=== PATIENT | female | born 1940 | race Caucasian/White ===

== ENCOUNTER 2016-06-08 10:57 | Day surgery (SDC) | payer MEDICARE, OTHER ==
[~2016-06-08] VITALS: Ht 162.6 cm; Wt 76.3 kg
[~2016-06-08 10:57] MED LIST: AMLO5TAB2 PO; ANAS1 PO; ATOR1TAB18 PO; CARV25TA PO; FENO54TA PO; FERR65TA PO; LACTATED RINGER'S 1000 ML INJ 1,000 ML IV ONE; METF500T PO; METO25TA3 PO; PROPOFOL 200 MG/20 ML AMP IV ONE; VITA10002 PO; VITA200012 PO
[2016-06-08 12:32] VITALS: BP 174/81; PULSE 64; RESP 18; TEMP 97.5; O2SAT 97
[2016-06-08 12:50] LABS: APTT (PATIENT) 26.1 SEC (24.3-30.1); PROTHROMBIN TIME - PATIENT 11.4 SEC (9.8-11.6)
--- NOTE | 2016-06-08 14:41 | EKG ---
Date Performed: 06/08/2016 Time Performed: 12:31:37 PTAGE: 76 years EKG: Sinus rhythm VOLTAGE CRITERIA FOR LVH ABNORMAL ECG NO PREVIOUS TRACING DOCTOR: Flako Lang Interpretating Date/Time 06/08/2016 14:38:38
[2016-06-08] MEDS ORDERED: LIDOCAINE 1%/EPINEPHrine 1:100,000 SOLN 20 ML VIAL ONE (15:14)
[2016-06-08] MEDS ORDERED: DICLOFENAC SODIUM 37.5 MG/ML VIAL IV PUSH ONE (15:19)
[2016-06-08] MEDS ORDERED: MIDAZOLAM HCL 2 MG/2 ML VIAL ONE (15:19)
[2016-06-08] MEDS ORDERED: FAMOTIDINE 20 MG/2 ML VIAL ONE (15:20)
[2016-06-08] MEDS ORDERED: ceFAZolin INJ 1,000 MG VIAL IV ONE (15:39)
[2016-06-08 16:49] VITALS: TEMP 96.6
[2016-06-08] MEDS ORDERED: *morphine SULFATE 8 MG/ML PERIprocedure ONLY ONE (16:58)
[2016-06-08] MEDS ORDERED: LABETALOL HCL 100 MG/20 ML VIAL ONE (16:58)
[2016-06-08] MEDS ORDERED: *ENALAPRILAT 1.25 MG/ML VIAL PERIprocedural Use ONLY ONE (17:05)
[2016-06-08] MEDS ORDERED: *RESP: ALBUTEROL 2.5 MG/3 ML NEB (PRN) PERIprocedural Use ONLY NEB ONE (17:08)
[2016-06-08] MEDS ORDERED: KETOROLAC TROMETHAMINE 30 MG/ML (IVP) VIAL IV PUSH SCH (17:13)
[2016-06-08] MEDS ORDERED: KETOROLAC TROMETHAMINE 30 MG/ML (IVP) VIAL ONE (17:13)
[2016-06-08] MEDS ORDERED: NITROGLYCERIN 0.4 MG SL 25 TABS/BTL SL ONE (17:25)
[2016-06-08] MEDS ORDERED: DO NOT ADM ANY ANTICOAGULANT DRUGS XX PRN (17:30)
[2016-06-08] MEDS ORDERED: FUROSEMIDE 20 MG/2 ML VIAL ONE (17:46)
[2016-06-08] MEDS ORDERED: *MEPERIDINE 25 MG INJ VIAL PERIprocedural Use ONLY ONE (18:00)
[2016-06-08] MEDS ORDERED: *ONDANSETRON 4 MG VIAL PERIprocedural Use ONLY ONE (18:05)
[2016-06-08 18:45] VITALS: BP 108/63; PULSE 67; RESP 15; O2SAT 95
--- NOTE | 2016-06-09 20:09 | EKG ---
Date Performed: 06/08/2016 Time Performed: 17:50:31 PTAGE: 76 years EKG: Sinus rhythm MODERATE VOLTAGE CRITERIA FOR LVH, CONSIDER NORMAL VARIANT NONSPECIFIC T-WAVE ABNORMALITY BORDERLINE ECG PREVIOUS TRACING : 06/08/2016 12.31 DOCTOR: Susu Orellana Interpretating Date/Time 06/09/2016 20:08:30
--- NOTE | 2016-06-10 14:23 | MP ---
cc: SHIELA BOOGIE KELLY L. MD DATE OF SURGERY 06/08/2016 PREOPERATIVE DIAGNOSIS High-grade vaginal dysplasia POSTOPERATIVE DIAGNOSIS High-grade vaginal dysplasia PROCEDURE Examination under anesthesia, colposcopy, wide local excision of vaginal mucosa. SURGEON Mallorie Schwartz MD MANIFOLD OPERATOR Evangeline regional administrative assistant ANESTHESIA General endotracheal anesthesia ESTIMATED BLOOD LOSS 20 cc HISTORY This is a 76-year-old female status post hysterectomy a number of years ago has had periodic dysplasia of the vagina undergoing surveillance recently. Abnormal Pap smear lead to colposcopy and biopsy of an area in the right vagina that appeared dysplastic. Results came back as high-grade dysplasia. She was counseled regarding options and given the recurrent and seemingly focal area of this lesion, recommendation was for surgical excision of that vaginal mucosa. She is in favor and presents now. She was seen in the preop holding area where this was again reviewed. Questions were answered, she expressed a good understanding and agreed to move forward. FINDINGS On exam under anesthesia, there is no inguinal adenopathy. External genitalia without mass or lesion. There was no overt vaginal lesion. There was diffuse atrophic changes. The cervix and uterus are surgically absent. After application of dilute acetic acid, approximately 1.5 to 2 cm area of acetowhite epithelium with some erythematous changes is noted in the right upper vagina on the mid and posterior aspect of the vaginal cuff suture line. There are diffuse atrophic changes. No other neoplastic change. At the completion of the case, the entire area of abnormality with a margin of normal-appearing skin had been removed. Neither the peritoneal cavity, bladder or rectum were entered. There was good reapproximation and complete hemostasis. PROCEDURE The patient taken to the operating room placed in the dorsal lithotomy position after general endotracheal anesthesia was administered. Time-out was undertaken and the patient was identified by sight recognition and hospital ID bracelet and the proposed procedure was reviewed and confirmed. Exam under anesthesia was performed with findings as described above. Dilute acetic acid was applied. Colposcopy was performed with findings as described above. Surgical marker was used to outline an ellipse circumferentially around the lesion with a margin of normal skin. Lidocaine epinephrine was injected submucosally and then a scalpel dissection was used to outline the area of dissection with countertraction with forceps. The mucosa was sharply dissected off from the underlying submucosal tissue. The specimen was removed and labeled as right upper vagina mucosa and then the mucosa was reapproximated and reinforced with interrupted [id number] 3-0 Vicryl sutures starting at the corners and then completing the closure with good hemostasis, good approximation of tissue. Exam confirmed the suture line was intact. There were no remaining foreign objects in the vagina. Pelvic exam included rectal exam confirmed there was no disruption to the anal or rectal mucosa and the surgical site was dry. There was no close proximity or suggestion of entry into the bladder. Similarly, the peritoneal cavity was not entered. A change of sterile gloves had been undertaken for final exam. There were no remaining foreign objects in the vagina. Preliminary and final counts were correct. She was returned to dorsal supine position and was pending reversal of anesthesia when I left the operating room to precede her to the Post Anesthesia Care Unit. MD DAVID Resendez/KIERSTEN /4:42 PM /2:16 PM
== END 2016-06-08 19:00 | disposition home or self-care (01) ==
LOC: HSDC 10:57
PROVIDERS: ATTEND Obstetrics & Gynecology Gynecologic Oncology
DX: D07.2 Carcinoma in situ of vagina (principal); Z88.1 Allergy status to other antibiotic agents; I11.0 Hypertensive heart disease with heart failure; I25.10 Atherosclerotic heart disease of native coronary artery without angina pectoris; E78.5 Hyperlipidemia, unspecified; Z87.891 Personal history of nicotine dependence; J44.9 Chronic obstructive pulmonary disease, unspecified; K21.9 Gastro-esophageal reflux disease without esophagitis; D64.9 Anemia, unspecified; Z85.3 Personal history of malignant neoplasm of breast; Z90.12 Acquired absence of left breast and nipple; E11.9 Type 2 diabetes mellitus without complications; Z79.84 Long term (current) use of oral hypoglycemic drugs
CPT/HCPCS: 00906; 56620; 85610; 85730; 86850; 86900; 86901; 88305; 93005; 94664; J0690; J1130; J1885; J1940; J2175; J2250; J2270; J2405; J3010; J7120; J7613; 88302

== ENCOUNTER → 2017-08-11 | Outpatient (CLI) | DX: Z01.812 Encounter for preprocedural laboratory examination (principal); Z01.810 Encounter for preprocedural cardiovascular examination; Z01.811 Encounter for preprocedural respiratory examination; C52 Malignant neoplasm of vagina; R94.31 Abnormal electrocardiogram [ECG] [EKG] ==

== ENCOUNTER → 2017-08-30 | Day surgery (SDC) | payer MEDICARE, OTHER ==
[~2017-08-30] VITALS: Ht 162.6 cm; Wt 77.4 kg
[~2017-08-30] MED LIST changes: +*ENALAPRILAT 1.25 MG/ML VIAL PERIprocedural Use ONLY ONE; +*RESP: ALBUTEROL 2.5 MG/3 ML NEB (PRN) PERIprocedural Use ONLY NEB ONE; +*morphine SULFATE 4 MG/ML PERIprocedure ONLY ONE; -AMLO5TAB2 PO; -ATOR1TAB18 PO; +ATOR80TA45 PO; +CHLORHEXIDINE GLUCONATE 2 % 1 PACK (2 CLOTHS) TOPICAL PRN; +DEXAMETHASONE SOD PHOS 4 MG/ML VIAL IV ONE; +DO NOT ADM ANY ANTICOAGULANT DRUGS PRN; -FERR65TA PO; +FURO20TA PO; +FUROSEMIDE 20 MG TAB PO ONE; +HYDR12.56 PO; +HYDROCHLOROTHIAZIDE 12.5 MG CAP PO ONE; +ISOS20TA2 PO; +ISOSORBIDE DINITRATE 20 MG TAB PO ONE; +KETOROLAC TROMETHAMINE 30 MG/ML (IVP) VIAL IV PUSH PRN; +LACTATED RINGER'S 1000 ML IV PRN; +LIDOCAINE 1%/EPINEPHrine 1:100,000 SOLN 20 ML VIAL ONE; +LIDOCAINE HCL 1% PF 5 ML SYRINGE OTHER ONE; +LORazepam 2 MG/ML VIAL IV ONE; +LORazepam 2 MG/ML VIAL ONE; +LOSA100T PO; +MAGN250T11 PO; -METF500T PO; -METO25TA3 PO; +METOPROLOL TARTRATE 25 MG TAB PO PRN; +MIDAZOLAM HCL 2 MG/2 ML VIAL ONE; +ONDANSETRON HCL 4 MG/2 ML VIAL IV ONE; +POVIDONE IODINE 5% (ANTISEPSIS KIT) 4 APPLICATIONS EACH NARE PRN; +SODIUM CHLORID 0.9% 500 ML IV PRN; +VITA2000 PO; -VITA200012 PO; +ceFAZolin INJ 1,000 MG VIAL IV ONE; +ceFAZolin INJ 1,000 MG VIAL ONE; +hydrALAZINE HCL 20 MG/ML VIAL IV ONE; +hydrALAZINE HCL 20 MG/ML VIAL ONE; +oxyCODONE/ACETAMINOPHEN 5 MG/325 MG TAB PO PRN
[2017-08-30 17:15] VITALS: BP 117/62; PULSE 81; RESP 16; TEMP 97.7; O2SAT 96
--- NOTE | 2017-08-31 11:14 | MP ---
cc: Mallorie Schwartz MD, Santosh DATE OF OPERATION: 08/30/2017 DATE OF PROCEDURE: 08/30/2017 PREOPERATIVE DIAGNOSIS: High grade vaginal dysplasia. POSTOPERATIVE DIAGNOSIS: High grade vaginal dysplasia. PROCEDURE PERFORMED: Examination under anesthesia, colposcopy, superficial upper vaginectomy. SURGEON: Mallorie Schwartz MD NEUROPSYCHOLOGY DIRECTOR: Ernesto contact center assistant. ANESTHESIA: General endotracheal anesthesia. ESTIMATED BLOOD LOSS: 30 mL. PATIENT HISTORY: A 77-year-old female with a prior history of high-grade vaginal dysplasia, who previously underwent resection, wide local excision. She had not been recently under our care as she moved to the [facility] in [place] and last seen by us approximately 1-1/2 to 2 years ago. However, abnormal Pap smear led to colposcopy and biopsy that showed, again, high-grade dysplasia in the upper vagina. The pathologist commented that the orientation of the specimen was such that they could not exclude the possibility of invasive disease. She was counseled regarding options. We recommend an examination under anesthesia with resection of vaginal mucosa and a narrow margin of submucosa if it appears to be preinvasive versus the possibility of biopsies with subsequent resection if it is localized and invasive in the central vagina versus the possibility of subsequent radiation therapy. She is seen again in the preop holding area with the findings and plan of care are discussed. Questions were asked and answered. She expressed good understanding and agreed to move forward with surgery. FINDINGS: On exam under anesthesia, there is no appreciably enlarged inguinal lymph nodes. External genitalia without mass or lesion. There is moderate diffuse atrophic changes throughout the vaginal mucosa. On exam, there was no obvious mass nodularity in the vagina itself. There is no palpable mass or nodularity in the pelvis. The uterus and cervix are surgically absent. On colposcopy, the diffuse atrophic changes are highlighted. In the right upper vagina and across the vaginal cuff are acetowhite epithelial changes with some early vascular changes occupying a total surface area of approximately 3 cm. No overt evidence of invasive disease on exam. DESCRIPTION OF PROCEDURE: She is taken to the operating room and placed in dorsal lithotomy position. After general endotracheal anesthesia was administered, a timeout was undertaken. She was identified by site recognition and hospital ID bracelet and the proposed procedure was reviewed and confirmed. Exam under anesthesia was performed with findings as described above. Then, dilute acetic acid is applied and colposcopy is performed with findings as described above. She was prepped and draped in sterile fashion, in-and-out catheterization of the bladder and the area of abnormality was outlined with surgical marker. Lidocaine epinephrine was injected into the submucosal space. Sharp dissection using a 15 blade scalpel was used to outline around the area of abnormality and sharp dissection with a scalpel blade was used to remove the mucosa and a narrow margin of underlying mucosa circumferentially until the entire area that appeared abnormal on colposcopy was satisfactorily removed and labeled as upper vagina. A separate piece of tissue from the central vaginal cuff became detached early in the procedure and may have been sent as a separate biopsy, but it is from the same anatomical area. Profound thinning of the vaginal mucosa was noted and it is reapproximated and reinforced with interrupted [id number] 3-0 Vicryl sutures, which rendered the area reapproximated, completely hemostatic and no residual abnormality detected. Exam confirmed there were no remaining foreign objects in the vagina. Preliminary and final counts were correct. She was returned to dorsal supine position and was pending reversal of anesthesia when I left the operating to precede her to the postanesthesia care unit. MD RIAZ Salazar/NATIVIDAD , 10:50 AM , 11:13 AM
== END | disposition home or self-care (01) ==
LOC: HSDC 11:09
PROVIDERS: ATTEND Obstetrics & Gynecology Gynecologic Oncology
DX: D06.7 Carcinoma in situ of other parts of cervix (principal); I42.9 Cardiomyopathy, unspecified; J44.9 Chronic obstructive pulmonary disease, unspecified; E78.5 Hyperlipidemia, unspecified; K21.9 Gastro-esophageal reflux disease without esophagitis; K57.92 Diverticulitis of intestine, part unspecified, without perforation or abscess without bleeding; Z85.3 Personal history of malignant neoplasm of breast; I50.9 Heart failure, unspecified; I10 Essential (primary) hypertension; Z87.891 Personal history of nicotine dependence
CPT/HCPCS: 00942; 57106; 86850; 86900; 86901; 88305; J0360; J0690; J1100; J2060; J2250; J2270; J2405; J3010; J7120; J7613